=== PATIENT | female | born 1950 | race Caucasian/White ===

== ENCOUNTER 2019-12-30 07:33 | Day surgery (SDC) | payer MEDICARE, BC ==
[~2019-12-30 07:33] MED LIST: Lactated Ringers 1,000 ML IV SCH; Lidocaine 1%/Sod Bicarbonate in NS 8.4% 1 ML Syringe IDERM PRN; Sodium Chloride 0.9% 10 ML Syringe FLUSH PRN
[2019-12-30] MEDS ORDERED: Midazolam 1 MG/ML 2 ML SDV ONE (08:44)
[2019-12-30] MEDS ORDERED: Lidocaine 1% 4 ML ONE (08:44)
[2019-12-30] MEDS ORDERED: Propofol 200 MG/20 ML SDV ONE ×2 (08:44→09:05)
[2019-12-30] MEDS ORDERED: fentaNYL 100 MCG/2 ML SDV ONE (08:44)
[2019-12-30] MEDS ORDERED: Labetalol 100 MG/20 ML MDV ONE (09:15)
--- NOTE | 2019-12-30 09:46 | PCM.PREANE ---
Preanesthetic Assessment - Procedure Proposed Procedure: EGD / Colonoscopy - Anesthesia/Transfusion/Family Hx Anesthesia History: Prior Anesthesia Without Reaction Family History of Anesthesia Reaction: No Transfusion History: No Prior Transfusion(s) - Review of Systems General: No Symptoms Pulmonary: No Symptoms Cardiovascular: No Symptoms Gastrointestinal: No Symptoms Neurological: No Symptoms Other: Reports: Thyroid Problems (hypothyroid), Depression, Anxiety - Physical Assessment NPO Status Date: 12/30/19 NPO Status Time: 05:00 Vital Signs: Last Vital Signs Temp 37.0 C 12/30/19 07:45 Pulse 90 12/30/19 07:45 Resp 20 12/30/19 07:45 BP 161/78 H 12/30/19 07:45 Pulse Ox 96 12/30/19 07:45 Height: 1.63 m Weight: 68.492 kg ASA Class: 2 Mental Status: Alert & Oriented x3 Airway Class: Mallampati = 1 Dentition: Reports: Normal Dentition Thyro-Mental Finger Breadths: 3 Mouth Opening Finger Breadths: 3 ROM/Head Extension: Full Lungs: Clear to Auscultation, Normal Respiratory Effort Cardiovascular: Regular Rate, Regular Rhythm - Allergies Allergies/Adverse Reactions: Allergies Allergy/AdvReac Type Severity Reaction Status Date / Time Sulfa (Sulfonamide Allergy Severe Hives Verified 12/30/19 08:16 Antibiotics) nut - unspecified Allergy Mouth Sores Verified 12/30/19 08:16 - Blood Blood Available: No Product(s) Available: None - Anesthesia Plan Pre-Op Medication Ordered: None - Acknowledgements Anesthesia Type Planned: MAC Pt an Appropriate Candidate for the Planned Anesthesia: Yes Alternatives and Risks of Anesthesia Discussed w Pt/Guardian: Yes Pt/Guardian Understands and Agrees with Anesthesia Plan: Yes PreAnesthesia Questionnaire Gastrointestinal History: Reports: GERD, Hiatal Hernia - HOME MEDS Home Medications: Home Meds Sertraline [Zoloft] 50 mg PO BEDTIME 11/25/13 [History] Cholecalciferol (Vitamin D3) [Vitamin D3] 2,000 unit PO DAILY 12/30/19 [History] L.acidoph,Paracasei, B.lactis [Probiotic] 1 cap PO DAILY 12/30/19 [History] LORazepam [Lorazepam] 0.5 mg PO BEDTIME 12/30/19 [History] - CURRENT (IN HOUSE) MEDS Current Meds: Current Medications Lactated Ringer's (Ringers, Lactated) 1,000 mls @ 125 mls/hr IV ASDIRECTED JACQUELYN Stop: 12/30/19 23:00 Last Admin: 12/30/19 07:50 Dose: 125 mls/hr Documented by: Lidocaine/Sodium Bicarbonate (Buffered Lidocaine 1% In Ns 8.4%) 0.25 ml IDERM ONETIME PRN PRN Reason: Prior to IV Start Stop: 12/30/19 18:00 Last Admin: 12/30/19 07:50 Dose: 0.25 ml Documented by: Sodium Chloride (Saline Flush) 10 ml FLUSH ASDIRECTED PRN PRN Reason: Keep Vein Open Stop: 12/30/19 18:00 Discontinued Medications Fentanyl (Sublimaze) Confirm Administered Dose 100 mcg .ROUTE .STK-MED ONE Stop: 12/30/19 08:45 Lidocaine HCl (Xylocaine-Mpf 1%) Confirm Administered Dose 4 mls @ as directed .ROUTE .STK-MED ONE Stop: 12/30/19 08:45 Labetalol HCl (Normodyne) Confirm Administered Dose 100 mg .ROUTE .STK-MED ONE Stop: 12/30/19 09:16 Midazolam HCl (Versed 1 Mg/Ml) Confirm Administered Dose 2 mg .ROUTE .STK-MED ONE Stop: 12/30/19 08:45 Propofol (Diprivan 20 Ml) Confirm Administered Dose 200 mg .ROUTE .STK-MED ONE Stop: 12/30/19 08:45 Propofol (Diprivan 20 Ml) Confirm Administered Dose 200 mg .ROUTE .STK-MED ONE Stop: 12/30/19 09:06
--- NOTE | 2019-12-30 09:46 | PCM48HPAN ---
Post Anesthesia Note - EVALUATION WITHIN 48HRS OF ANESTHETIC Vital Signs in Normal Range: Yes Patient Participated in Evaluation: Yes Respiratory Function Stable: Yes Airway Patent: Yes Cardiovascular Function Stable: Yes Hydration Status Stable: Yes Pain Control Satisfactory: Yes Nausea and Vomiting Control Satisfactory: Yes Mental Status Recovered: Yes Vital Signs: Last Vital Signs Temp 36.3 C 12/30/19 09:39 Pulse 76 12/30/19 09:39 Resp 16 12/30/19 09:39 BP 112/53 L 12/30/19 09:39 Pulse Ox 92 L 12/30/19 09:39 - COMMENTS/OBSERVATIONS Free Text/Narrative:: no anesthesia complications noted
--- NOTE | 2019-12-30 09:53 | PCM.PRNOTE ---
- Free Text/Narrative Note: Date: 12/30/2019 Procedure: screening upper and lower endoscopy Indications: history of GERD/ hiatal hernia, colon polyps Endoscopist: Joseluis Joy MD Findings: moderate size hiatal hernia. Marked diverticular disease confined to the sigmoid. Good prep. No polyps identified. Detailed Report: The patient was taken to the endoscopy suite and placed in left lateral decubitus position. Timeout was performed, and monitored anesthesia care initiated. A bite-block was placed, and the endoscope was inserted into the mouth. The scope was advanced to the second portion of the duodenum with ease. There was mild friability in the duodenal bulb, and a sample mucosal biopsy was obtained with cold forceps. The gastric antrum appeared grossly normal, a sample of antral tissue was obtained. On retroflexion of the scope, a moderate sized hiatal hernia was appreciated. There was no evidence of Sreekanth's ulcers, or gastric ulcers elsewhere. The scope was withdrawn into the distal esophagus, providing different perspective on this moderate sized hiatal hernia. There was some mild inflammatory change at the distal esophageal mucosa. A sample biopsy of the gastric cardia, and distal esophagus were obtained. Air was evacuated from the stomach, and the scope was completely withdrawn. Next, attention was turned to colonoscopy. Inspection of the anus was unremarkable. Digital rectal exam was unremarkable. The colonoscope was lubricated and inserted in the anus. Scope was advanced all the way to the cecum. The prep was noted to be very good. The appendiceal orifice was visualized. The scope was slowly withdrawn, and mucosal surfaces carefully inspected. No polyps were identified. In the sigmoid colon, extensive diverticular disease was noted. On retroflexion within the rectum, no significant hemorrhoidal disease or other pathology was appreciated. Air was evacuated, and the colonoscope completely withdrawn. Patient tolerated the procedure well.
== END 2019-12-30 10:13 | disposition home or self-care (01) ==
LOC: JD.SDS 07:33
PROVIDERS: ATTEND Surgery
DX: Z12.11 Encounter for screening for malignant neoplasm of colon (principal); K57.30 Diverticulosis of large intestine without perforation or abscess without bleeding; K44.9 Diaphragmatic hernia without obstruction or gangrene; K21.9 Gastro-esophageal reflux disease without esophagitis; F41.9 Anxiety disorder, unspecified; E03.9 Hypothyroidism, unspecified; F32.9 Major depressive disorder, single episode, unspecified; E78.00 Pure hypercholesterolemia, unspecified; Z88.2 Allergy status to sulfonamides; Z79.899 Other long term (current) drug therapy; Z98.890 Other specified postprocedural states; Z86.010 Personal history of colon polyps; Z91.018 Allergy to other foods
CPT/HCPCS: 43239; G0105; J2001; J2250; J2704; J3010; J3490; J7120; 00813

== ENCOUNTER 2021-03-05 18:09 | Day surgery (SDC) | payer MEDICARE, BC ==
[2021-03-05] MEDS ORDERED: HYDROmorphone 1 MG/ML Syringe IVPUSH ONE ×2 (21:17→22:51)
[2021-03-05] MEDS ORDERED: Ondansetron 4 MG/2 ML SDV IVPUSH ONE ×2 (21:17→23:01)
--- NOTE | 2021-03-05 21:22 | EDM.PDOC ---
ED HPI GENERAL MEDICAL PROBLEM - General Chief Complaint: Abdominal Pain Stated Complaint: R SIDE ABDOMINAL PAIN Time Seen by Provider: 03/05/21 20:28 Source of Information: Reports: Patient, Family () History Limitations: Reports: No Limitations - History of Present Illness INITIAL COMMENTS - FREE TEXT/NARRATIVE: Mrs. Mendosa is a very pleasant 71-year-old woman who now presents to the ED stating that she developed right upper quadrant abdominal pain radiating through to her right infrascapular area, along with nausea, numerous episodes of emesis, and some watery diarrhea around 21:00 to 22:00 last night, after eating a fried egg sandwich for dinner around 18:00. She has not had anything to eat since then. She describes the pain as a stabbing and sharp in character. The pain has been constant but progressively getting worse. She feels better if she is upright than supine. No recent fever or urinary symptoms. She states that she took some Aleve, which helped a bit. No prior similar symptoms. Here in the ED, the patient's initial BP is found to be elevated at 174/87, otherwise, she is hemodynamically stable, afebrile, saturating 95% on room air. She appears to be uncomfortable, moving slowly and having difficulty reclining. Prior to last night, the patient denies having a recent fever, chills, sore throat, ear pain, nasal or sinus congestion, cough, dyspnea, chest pain, palpitations, nausea, vomiting, constipation, diarrhea, abdominal pain, urinary symptoms, recent weight gain or weight loss, recent bloody bowel movements or black bowel movements, recent joint aches, headaches, or rashes. The patient's PCP is MARIBEL Holloway. Her Strategy Execution Consultant is Dr. Jeovany Ozuna. The patient has received 2 COVID vaccinations. Right Abdomen Pain Score (Numeric/FACES): 10 - Related Data Allergies Allergy/AdvReac Type Severity Reaction Status Date / Time Sulfa (Sulfonamide Allergy Severe Hives Verified 12/30/19 08:16 Antibiotics) nut - unspecified Allergy Mouth Sores Verified 12/30/19 08:16 Home Meds: Home Meds Sertraline [Zoloft] 50 mg PO BEDTIME 11/25/13 [History] Cholecalciferol (Vitamin D3) [Vitamin D3] 2,000 unit PO DAILY 12/30/19 [History] L.acidoph,Paracasei, B.lactis [Probiotic] 1 cap PO DAILY 12/30/19 [History] LORazepam [Lorazepam] 0.5 mg PO BEDTIME 12/30/19 [History] Past Medical History Gastrointestinal History: Reports: GERD (untreated), Hiatal Hernia Genitourinary History: Reports: Urinary Incontinence (stress incontinence) Musculoskeletal History: Reports: Osteoarthritis Psychiatric History: Reports: Anxiety, Depression Endocrine/Metabolic History: Reports: Hyperthyroidism (s/p partial thyroidectomy) Oncologic (Cancer) History: Reports: Basal Cell Carcinoma - Past Surgical History HEENT Surgical History: Reports: Oral Surgery (dental extractions) GI Surgical History: Reports: Appendectomy Female Surgical History: Reports: Section (x 1) Endocrine Surgical History: Reports: Thyroidectomy (partial) Musculoskeletal Surgical History: Reports: Other (See Below) (Right 2nd finger repair) Social & Family History - Tobacco Use Tobacco Use Status *Q: Never Tobacco User - Caffeine Use Caffeine Use: Reports: Coffee, Soda - Alcohol Use Alcohol Use History: No - Recreational Drug Use Recreational Drug Use: No - Living Situation & Occupation Living situation: Reports: , with Spouse Occupation: Retired ED ROS GENERAL - Review of Systems Review Of Systems: Comprehensive ROS is negative, except as noted in HPI. ED EXAM, GI/ABD - Physical Exam Exam: See Below Exam Limited By: No Limitations General Appearance: Alert, WD/WN, Mild Distress (appears uncomfortable) Eyes: Bilateral: Normal Appearance, EOMI Ears: Normal External Exam, Hearing Grossly Normal Nose: Normal Inspection Throat/Mouth: Normal Inspection, Normal Lips, Normal Voice, No Airway Compromise Head: Atraumatic, Normocephalic Neck: Normal Inspection, Full Range of Motion Respiratory/Chest: No Respiratory Distress, Lungs Clear, Normal Breath Sounds, No Accessory Muscle Use Cardiovascular: Normal Peripheral Pulses, Regular Rate, Rhythm, No Edema, No Gallop, No JVD, No Murmur, No Rub GI/Abdominal Exam: Soft, No Organomegaly, No Distention, No Abnormal Bruit, No Mass, Tender (Exquisite, right upper quadrant only. Sheridan sign present.), Abnormal Bowel Sounds (diminished) Back Exam: Normal Inspection, Full Range of Motion. No: CVA Tenderness (L), CVA Tenderness (R) Extremities: Normal Inspection, Normal Range of Motion, No Pedal Edema, Normal Capillary Refill Neurological: Alert, Oriented, Normal Cognition, No Motor/Sensory Deficits Psychiatric: Normal Affect Skin Exam: Warm, Dry, Intact, Normal Color, No Rash Course - Vital Signs Last Recorded V/S: Last Vital Signs Temp 37.3 C 03/05/21 19:41 Pulse 90 03/05/21 19:41 Resp 20 03/05/21 19:41 BP 174/87 H 03/05/21 19:41 Pulse Ox 95 03/05/21 19:41 - Orders/Labs/Meds Orders: Active Orders 24 hr Category Date Time Status Abdomen Ltd [US] Stat Exams 03/05/21 21:15 Taken Abdomen Pelvis w Cont [CT] Stat Exams 03/05/21 21:17 Taken Sodium Chloride 0.9% [Normal Saline] 1,000 ml Med 03/05/21 21:30 Active IV ASDIRECTED Medication Orders Sodium Chloride (Normal Saline) 1,000 mls @ 150 mls/hr IV ASDIRECTED JACQUELYN Last Admin: 03/05/21 21:24 Dose: 150 mls/hr Documented by: ROD Labs: Laboratory Tests 03/05/21 03/05/21 03/05/21 Range/Units 19:45 19:45 19:45 WBC 13.48 H (3.98-10.04) K/mm3 RBC 4.81 (3.98-5.22) M/mm3 Hgb 14.2 (11.2-15.7) gm/dl Hct 43.4 (34.1-44.9) % MCV 90.2 (79.4-94.8) fl MCH 29.5 (25.6-32.2) pg MCHC 32.7 (32.2-35.5) g/dl RDW Std Deviation 43.6 (36.4-46.3) fL Plt Count 346 (182-369) K/mm3 MPV 9.3 L (9.4-12.3) fl Neutrophils % (Manual) 80 H (40-60) % Band Neutrophils % 0 (0-10) % Lymphocytes % (Manual) 9 L (20-40) % Atypical Lymphs % 1 % Monocytes % (Manual) 9 (2-10) % Eosinophils % (Manual) 0 L (0.7-5.8) % Basophils % (Manual) 1 (0.1-1.2) Platelet Estimate Adequate RBC Morph Comment Normal Sodium 140 (136-145) mEq/L Potassium 3.7 (3.5-5.1) mEq/L Chloride 102 (98-107) mEq/L Carbon Dioxide 24 (21-32) mEq/L Anion Gap 17.7 H (5-15) BUN 15 (7-18) mg/dL Creatinine 0.8 (0.55-1.02) mg/dL Est Cr Clr Drug Dosing 54.89 mL/min Estimated GFR (MDRD) > 60 (>60) mL/min BUN/Creatinine Ratio 18.8 H (14-18) Glucose 145 H (70-99) mg/dL Calcium 9.4 (8.5-10.1) mg/dL Total Bilirubin 0.9 (0.2-1.0) mg/dL AST 36 (15-37) U/L ALT 55 (14-59) U/L Alkaline Phosphatase 105 (46-116) U/L C-Reactive Protein 9.9 H* (<1.0) mg/dL Total Protein 8.1 (6.4-8.2) g/dl Albumin 4.1 (3.4-5.0) g/dl Globulin 4.0 gm/dL Albumin/Globulin Ratio 1.0 (1-2) Lipase 71 L (73-393) U/L Urine Color (Yellow) Urine Appearance (Clear) Urine pH (5.0-8.0) Ur Specific [place] (1.005-1.030) Urine Protein (Negative) Urine Glucose (UA) (Negative) Urine Ketones (Negative) Urine Occult Blood (Negative) Urine Nitrite (Negative) Urine Bilirubin (Negative) Urine Urobilinogen (0.2-1.0) Ur Leukocyte Esterase (Negative) Urine RBC (0-5) /hpf Urine WBC (0-5) /hpf Ur Squamous Epith Cells (0-5) /hpf Urine Bacteria (FEW) /hpf Urine Mucus (FEW) /hpf SARS-CoV-2 RNA (SIMBA) (NEGATIVE) 03/05/21 03/05/21 Range/Units 21:00 22:04 WBC (3.98-10.04) K/mm3 RBC (3.98-5.22) M/mm3 Hgb (11.2-15.7) gm/dl Hct (34.1-44.9) % MCV (79.4-94.8) fl MCH (25.6-32.2) pg MCHC (32.2-35.5) g/dl RDW Std Deviation (36.4-46.3) fL Plt Count (182-369) K/mm3 MPV (9.4-12.3) fl Neutrophils % (Manual) (40-60) % Band Neutrophils % (0-10) % Lymphocytes % (Manual) (20-40) % Atypical Lymphs % % Monocytes % (Manual) (2-10) % Eosinophils % (Manual) (0.7-5.8) % Basophils % (Manual) (0.1-1.2) Platelet Estimate RBC Morph Comment Sodium (136-145) mEq/L Potassium (3.5-5.1) mEq/L Chloride (98-107) mEq/L Carbon Dioxide (21-32) mEq/L Anion Gap (5-15) BUN (7-18) mg/dL Creatinine (0.55-1.02) mg/dL Est Cr Clr Drug Dosing mL/min Estimated GFR (MDRD) (>60) mL/min BUN/Creatinine Ratio (14-18) Glucose (70-99) mg/dL Calcium (8.5-10.1) mg/dL Total Bilirubin (0.2-1.0) mg/dL AST (15-37) U/L ALT (14-59) U/L Alkaline Phosphatase (46-116) U/L C-Reactive Protein (<1.0) mg/dL Total Protein (6.4-8.2) g/dl Albumin (3.4-5.0) g/dl Globulin gm/dL Albumin/Globulin Ratio (1-2) Lipase (73-393) U/L Urine Color Marcell H (Yellow) Urine Appearance Slt cloudy H (Clear) Urine pH 5.5 (5.0-8.0) Ur Specific [place] > or = 1.030 (1.005-1.030) Urine Protein 2+ H (Negative) Urine Glucose (UA) Negative (Negative) Urine Ketones 1+ H (Negative) Urine Occult Blood 2+ H (Negative) Urine Nitrite Negative (Negative) Urine Bilirubin 2+ H (Negative) Urine Urobilinogen 1.0 (0.2-1.0) Ur Leukocyte Esterase Negative (Negative) Urine RBC 0-5 (0-5) /hpf Urine WBC 0-5 (0-5) /hpf Ur Squamous Epith Cells 0-5 (0-5) /hpf Urine Bacteria Many H (FEW) /hpf Urine Mucus Not seen (FEW) /hpf SARS-CoV-2 RNA (SIMBA) Negative (NEGATIVE) Meds: Medications Generic Name Dose Route Start Last Admin Trade Name Freq PRN Reason Stop Dose Admin Sodium Chloride 1,000 mls @ 150 mls/hr 03/05/21 21:30 03/05/21 21:24 Normal Saline IV 150 mls/hr ASDIRECTED JACQUELYN Administration Discontinued Medications Generic Name Dose Route Start Last Admin Trade Name Freq PRN Reason Stop Dose Admin Hydromorphone HCl 1 mg 03/05/21 21:17 03/05/21 21:24 Hydromorphone 1 Mg/Ml Syringe IVPUSH 03/05/21 21:18 1 mg ONETIME ONE Administration Hydromorphone HCl 1 mg 03/05/21 22:51 03/05/21 23:06 Hydromorphone 1 Mg/Ml Syringe IVPUSH 03/05/21 22:52 1 mg ONETIME ONE Administration Hydromorphone HCl 1 mg 03/06/21 03:37 03/06/21 03:45 Hydromorphone 1 Mg/Ml Syringe IVPUSH 03/06/21 03:38 1 mg ONETIME ONE Administration Piperacillin Sod/Tazobactam 100 mls @ 200 mls/hr 03/05/21 22:48 03/05/21 23:06 Sod 4.5 gm/ Sodium Chloride IV 03/05/21 23:17 200 mls/hr ONETIME ONE Administration Ondansetron HCl 4 mg 03/05/21 21:17 03/05/21 21:24 Ondansetron 4 Mg/2 Ml Sdv IVPUSH 03/05/21 21:18 4 mg ONETIME ONE Administration Ondansetron HCl 4 mg 03/05/21 23:01 03/05/21 23:06 Ondansetron 4 Mg/2 Ml Sdv IVPUSH 03/05/21 23:02 4 mg ONETIME ONE Administration - Re-Assessments/Exams Free Text/Narrative Re-Assessment/Exam: 03/05/21 21:18 The patient presentation is concerning for acute cholecystitis. A CBC, CMP, lipase level, CRP, and urinalysis were ordered at triage. I have added an ultrasound of the right upper quadrant and a CT of the abdomen and pelvis with oral and IV contrast. In case the patient needs to go to the OR, be admitted, or transferred, I have also added a swab for the SARS-CoV-2 virus. In the meantime, the patient will be given some IV Dilaudid, IV Zofran, and IV fluid. 03/05/21 22:30 The patient's CBC is remarkable for leukocytosis of 13.48, but with 0% bandemia, and the remainder of her CBC being unremarkable. The patient's CMP is remarkable for hyperglycemia of 145, with the remainder of her CMP being unremarkable. Her lipase level is within normal limits at 71. Her CRP is elevated at 9.9. Her urinalysis is remarkable for marcell/slightly cloudy appearance, 2+ occult blood with 0-5 RBCs, leukocyte esterase negative with 0-5 WBCs, nitrate negative with many bacteria, and 0-5 squamous epithelial cells. Notified that the patient's wanted to take the patient home. I went and talked to both the patient and her and encouraged the patient to stay to complete her ordered workup. She has agreed. She will begin drinking the oral contrast for the CT scan now. 03/05/21 22:41 Ultrasound of the right upper quadrant is read by Mariaelena as "Probable cholelithiasis with chronic cholecystitis." 03/05/21 22:[address] Joy at 22:43. He requested that we start the patient on Zosyn. Because we have no beds available at this facility, the patient will remain here in the ED overnight. Dr. Joy will evaluate the patient in the morning, with the intention of taking her to the operating room. 03/05/21 22:52 Test results and my conversation with Dr. Joy discussed with the patient and her . She is agreeable with the plan. 03/06/21 00:13 The patient's a swab for the SARS-CoV-2 virus is negative. 03/06/21 01:31 CT of the abdomen and pelvis with IV contrast is read by Mariaelena as: 1. Changes consistent with both acute and chronic cholecystitis 03/06/21 07:07 Dr. Joy has come to the ED, reviewed the CT scan, and evaluated the patient. I am told that he intends to take the patient to the OR around 09:30. Departure - Departure Time of Disposition: 07:08 Disposition: DC/Tfer to [facility] Condition: Good Clinical Impression: Acute cholecystitis - Discharge Information *PRESCRIPTION DRUG MONITORING PROGRAM REVIEWED*: Not Applicable *COPY OF PRESCRIPTION DRUG MONITORING REPORT IN PATIENT [place]: Not Applicable Sepsis Event Note (ED) - Focused Exam Vital Signs: Vital Signs Temp Pulse Resp BP Pulse Ox 03/05/21 19:41 37.3 C 90 20 174/87 H 95 - My Orders Last 24 Hours: My Active Orders 03/05/21 21:15 Abdomen Ltd [US] Stat 03/05/21 21:17 Abdomen Pelvis w Cont [CT] Stat 03/05/21 21:30 Sodium Chloride 0.9% [Normal Saline] 1,000 ml IV ASDIRECTED - Assessment/Plan Last 24 Hours: My Active Orders 03/05/21 21:15 Abdomen Ltd [US] Stat 03/05/21 21:17 Abdomen Pelvis w Cont [CT] Stat 03/05/21 21:30 Sodium Chloride 0.9% [Normal Saline] 1,000 ml IV ASDIRECTED
[2021-03-05] MEDS ORDERED: Sodium Chloride 0.9% 1,000 ML IV SCH (21:30)
[2021-03-05] MEDS ORDERED: Piperacillin/Tazobactam 4.5 GM in Sodium Chloride 0.9% 100 ML IV ONE (22:48)
[2021-03-06] MEDS ORDERED: HYDROmorphone 1 MG/ML Syringe IVPUSH ONE (03:37)
[2021-03-06] MEDS ORDERED: Piperacillin/Tazobactam 4.5 GM in Sodium Chloride 0.9% 100 ML IV ONE ×2 (07:09→10:45)
--- NOTE | 2021-03-06 07:21 | PCM.HP.2 ---
H&P History of Present Illness - General Date of Service: 03/06/21 Admit Problem/Dx: acute cholecystitis Source of Information: Patient History Limitations: Reports: No Limitations - History of Present Illness Initial Comments - Free Text/Narative: Mrs. Mendosa is a 71 yo woman presenting with pain in the right upper quadrant which started in the evening two days ago. The pain has been severe and unremitting since onset. She has never had pain like this before. She has been vomiting. She denies fever. In the ER, she has focal tenderness in the right upper quadrant and feels warm to touch. She is tachycardic to 100-110 with normal BP on most recent check. WBC is elevated at 13,000 [address] RU[address] US and CT show evidence of cholecystitis with stones and sludge. Labs are not suggestive of choledocholithiasis. The only medications she takes are over the counter vitamins and supplements, lorazepam and sertraline. Prior surgery includes appendectomy, oophorectomy and partial thyroidectomy- she denies any history of cancer however. Right Abdomen Pain Score (Numeric/FACES): 10 - Related Data Allergies/Adverse Reactions: Allergies Allergy/AdvReac Type Severity Reaction Status Date / Time Sulfa (Sulfonamide Allergy Severe Hives Verified 12/30/19 08:16 Antibiotics) nut - unspecified Allergy Mouth Sores Verified 12/30/19 08:16 Home Medications: Home Meds Sertraline [Zoloft] 50 mg PO BEDTIME 11/25/13 [History] Cholecalciferol (Vitamin D3) [Vitamin D3] 2,000 unit PO DAILY 12/30/19 [History] L.acidoph,Paracasei, B.lactis [Probiotic] 1 cap PO DAILY 12/30/19 [History] LORazepam [Lorazepam] 0.5 mg PO BEDTIME 12/30/19 [History] Past Medical History Gastrointestinal History: Reports: GERD (untreated), Hiatal Hernia Genitourinary History: Reports: Urinary Incontinence (stress incontinence) Musculoskeletal History: Reports: Osteoarthritis Psychiatric History: Reports: Anxiety, Depression Endocrine/Metabolic History: Reports: Hyperthyroidism (s/p partial thyroidectomy) Other Endocrine/Metabolic History: partial thyroid surgery Oncologic (Cancer) History: Reports: Basal Cell Carcinoma - Infectious Disease History Infectious Disease History: Reports: None - Past Surgical History HEENT Surgical History: Reports: Oral Surgery (dental extractions) GI Surgical History: Reports: Appendectomy Female Surgical History: Reports: Section (x 1) Endocrine Surgical History: Reports: Thyroidectomy (partial) Musculoskeletal Surgical History: Reports: Other (See Below) (Right 2nd finger repair) Social & Family History - Tobacco Use Tobacco Use Status *Q: Never Tobacco User - Caffeine Use Caffeine Use: Reports: Coffee, Soda - Recreational Drug Use Recreational Drug Use: No - Living Situation & Occupation Living situation: Reports: , with Spouse Occupation: Retired H&P Review of Systems - Review of Systems: Review Of Systems: See Below General: Reports: Malaise HEENT: Reports: No Symptoms Pulmonary: Reports: No Symptoms Cardiovascular: Reports: No Symptoms Gastrointestinal: Reports: Abdominal Pain, Anorexia, Nausea, Vomiting Genitourinary: Reports: No Symptoms Musculoskeletal: Reports: No Symptoms Skin: Reports: No Symptoms Psychiatric: Reports: No Symptoms Neurological: Reports: No Symptoms Hematologic/Lymphatic: Reports: No Symptoms Immunologic: Reports: No Symptoms Exam - Exam Exam: See Below - Vital Signs Vital Signs: Last Vital Signs Temp 37.3 C 03/05/21 19:41 Pulse 90 03/05/21 19:41 Resp 20 03/05/21 19:41 BP 174/87 H 03/05/21 19:41 Pulse Ox 95 03/05/21 19:41 Weight: 70.108 kg - Exam Quality Assessment: Supplemental Oxygen General: Alert, Oriented, Cooperative, Mild Distress HEENT: Conjunctiva Clear, Pupils Equal Neck: Supple Lungs: Clear to Auscultation, Normal Respiratory Effort Cardiovascular: Tachycardia, Other (no murmur, sinus rhythm, palpable radial pulses, BP ~130/70 at time of exam) GI/Abdominal Exam: Soft, No Mass, Tender Extremities: Normal Inspection Skin: Warm, Dry Neuro Extensive - Mental Status: Alert Psychiatric: Normal Mood - Patient Data Lab Results Last 24 hrs: Laboratory Results - last 24 hr 03/05/21 03/05/21 03/05/21 Range/Units 19:45 19:45 19:45 WBC 13.48 H (3.98-10.04) K/mm3 RBC 4.81 (3.98-5.22) M/mm3 Hgb 14.2 (11.2-15.7) gm/dl Hct 43.4 (34.1-44.9) % MCV 90.2 (79.4-94.8) fl MCH 29.5 (25.6-32.2) pg MCHC 32.7 (32.2-35.5) g/dl RDW Std Deviation 43.6 (36.4-46.3) fL Plt Count 346 (182-369) K/mm3 MPV 9.3 L (9.4-12.3) fl Neutrophils % (Manual) 80 H (40-60) % Band Neutrophils % 0 (0-10) % Lymphocytes % (Manual) 9 L (20-40) % Atypical Lymphs % 1 % Monocytes % (Manual) 9 (2-10) % Eosinophils % (Manual) 0 L (0.7-5.8) % Basophils % (Manual) 1 (0.1-1.2) Platelet Estimate Adequate RBC Morph Comment Normal Sodium 140 (136-145) mEq/L Potassium 3.7 (3.5-5.1) mEq/L Chloride 102 (98-107) mEq/L Carbon Dioxide 24 (21-32) mEq/L Anion Gap 17.7 H (5-15) BUN 15 (7-18) mg/dL Creatinine 0.8 (0.55-1.02) mg/dL Est Cr Clr Drug Dosing 54.89 mL/min Estimated GFR (MDRD) > 60 (>60) mL/min BUN/Creatinine Ratio 18.8 H (14-18) Glucose 145 H (70-99) mg/dL Calcium 9.4 (8.5-10.1) mg/dL Total Bilirubin 0.9 (0.2-1.0) mg/dL AST 36 (15-37) U/L ALT 55 (14-59) U/L Alkaline Phosphatase 105 (46-116) U/L C-Reactive Protein 9.9 H* (<1.0) mg/dL Total Protein 8.1 (6.4-8.2) g/dl Albumin 4.1 (3.4-5.0) g/dl Globulin 4.0 gm/dL Albumin/Globulin Ratio 1.0 (1-2) Lipase 71 L (73-393) U/L Urine Color (Yellow) Urine Appearance (Clear) Urine pH (5.0-8.0) Ur Specific [place] (1.005-1.030) Urine Protein (Negative) Urine Glucose (UA) (Negative) Urine Ketones (Negative) Urine Occult Blood (Negative) Urine Nitrite (Negative) Urine Bilirubin (Negative) Urine Urobilinogen (0.2-1.0) Ur Leukocyte Esterase (Negative) Urine RBC (0-5) /hpf Urine WBC (0-5) /hpf Ur Squamous Epith Cells (0-5) /hpf Urine Bacteria (FEW) /hpf Urine Mucus (FEW) /hpf SARS-CoV-2 RNA (SIMBA) (NEGATIVE) 03/05/21 03/05/21 Range/Units 21:00 22:04 WBC (3.98-10.04) K/mm3 RBC (3.98-5.22) M/mm3 Hgb (11.2-15.7) gm/dl Hct (34.1-44.9) % MCV (79.4-94.8) fl MCH (25.6-32.2) pg MCHC (32.2-35.5) g/dl RDW Std Deviation (36.4-46.3) fL Plt Count (182-369) K/mm3 MPV (9.4-12.3) fl Neutrophils % (Manual) (40-60) % Band Neutrophils % (0-10) % Lymphocytes % (Manual) (20-40) % Atypical Lymphs % % Monocytes % (Manual) (2-10) % Eosinophils % (Manual) (0.7-5.8) % Basophils % (Manual) (0.1-1.2) Platelet Estimate RBC Morph Comment Sodium (136-145) mEq/L Potassium (3.5-5.1) mEq/L Chloride (98-107) mEq/L Carbon Dioxide (21-32) mEq/L Anion Gap (5-15) BUN (7-18) mg/dL Creatinine (0.55-1.02) mg/dL Est Cr Clr Drug Dosing mL/min Estimated GFR (MDRD) (>60) mL/min BUN/Creatinine Ratio (14-18) Glucose (70-99) mg/dL Calcium (8.5-10.1) mg/dL Total Bilirubin (0.2-1.0) mg/dL AST (15-37) U/L ALT (14-59) U/L Alkaline Phosphatase (46-116) U/L C-Reactive Protein (<1.0) mg/dL Total Protein (6.4-8.2) g/dl Albumin (3.4-5.0) g/dl Globulin gm/dL Albumin/Globulin Ratio (1-2) Lipase (73-393) U/L Urine Color Mary Carmen H (Yellow) Urine Appearance Slt cloudy H (Clear) Urine pH 5.5 (5.0-8.0) Ur Specific [place] > or = 1.030 (1.005-1.030) Urine Protein 2+ H (Negative) Urine Glucose (UA) Negative (Negative) Urine Ketones 1+ H (Negative) Urine Occult Blood 2+ H (Negative) Urine Nitrite Negative (Negative) Urine Bilirubin 2+ H (Negative) Urine Urobilinogen 1.0 (0.2-1.0) Ur Leukocyte Esterase Negative (Negative) Urine RBC 0-5 (0-5) /hpf Urine WBC 0-5 (0-5) /hpf Ur Squamous Epith Cells 0-5 (0-5) /hpf Urine Bacteria Many H (FEW) /hpf Urine Mucus Not seen (FEW) /hpf SARS-CoV-2 RNA (SIMBA) Negative (NEGATIVE) Result Diagrams: 03/05/21 19:45 03/05/21 19:45 Sepsis Event Note - Focused Exam Vital Signs: Vital Signs Temp Pulse Resp BP Pulse Ox 03/05/21 19:41 37.3 C 90 20 174/87 H 95 Problem List Initiated/Reviewed/Updated: Yes Orders Last 24hrs: Active Orders 24 hr Category Date Time Status NPO Now [Nothing per Oral Now Diet] [DIET] Diet 03/06/21 Lunch Active Abdomen Ltd [US] Stat Exams 03/05/21 21:15 Taken Abdomen Pelvis w Cont [CT] Stat Exams 03/05/21 21:17 Taken Piperacillin/Tazobactam [Piperacil-Tazobact] 4.5 gm Med 03/06/21 07:09 Ordered Sodium Chloride 0.9% [Normal Saline] 100 ml IV ONETIME Sodium Chloride 0.9% [Normal Saline] 1,000 ml Med 03/05/21 21:30 Active IV ASDIRECTED Schedule Procedure [COMM] Routine Oth 03/06/21 07:08 Ordered Medication Orders Sodium Chloride (Normal Saline) 1,000 mls @ 150 mls/hr IV ASDIRECTED [facility] [place] Last Admin: 03/05/21 21:24 Dose: 150 mls/hr Documented by: ROD Piperacillin Sod/Tazobactam (Sod 4.5 gm/ Sodium Chloride) 100 mls @ 200 mls/hr IV ONETIME ONE Stop: 03/06/21 07:38 Assessment/Plan Comment:: Acute cholecystitis. Plan for laparoscopic cholecystectomy. Reviewed risks including bleeding, infection, bile duct injury, and possible need for additional procedures. All questions were answered to the patient's satisfaction prior to proceeding. - Mortality Measure Prognosis:: Good
--- NOTE | 2021-03-06 07:27 | US ---
Limited abdominal ultrasound: Multiple real-time images were obtained of the upper right abdomen. Comparison: No prior abdominal ultrasound is available. Pancreas is not completely seen. Visualized portions of the pancreas show no discrete abnormality. Liver is not optimally visualized but shows no discrete abnormality. Gallbladder is distended and shows diffuse increased echoes presumably caused by increased sludge within the gallbladder. No shadowing gallstones are seen. Common bile duct shows slight areas of thickening. No biliary duct dilatation is seen. Right kidney shows no hydronephrosis or mass. Right kidney measures 9.4 cm in length. Proximal aorta shows no aneurysm. Inferior vena cava is patent. Main portal vein shows normal hepatopedal flow. Impression: 1. Gallbladder is diffusely filled with sludge. No shadowing gallstones are seen. Several areas of mild gallbladder wall thickening are noted with no biliary duct dilatation. 2. No additional abnormality is definitely appreciated on right upper quadrant abdominal ultrasound study. Diagnostic code #3 I agree with preliminary report from [facility], finalized on 03/05/21, 11:39 PM CDT, code 1
--- NOTE | 2021-03-06 07:50 | CT ---
CT abdomen and pelvis Technique: Multiple axial sections were obtained from above the dome of the diaphragm inferiorly through the pubic symphysis. Intravenous contrast was utilized. No oral contrast has been given. Comparison: Prior abdominal ultrasound performed earlier on the same day (9:26 PM). Findings: Gallbladder is enlarged. There is haziness seen around the gallbladder presumably due to inflammatory change. Visualized lung bases show mostly what appears to be fibrosis and atelectasis. Difficult to exclude pneumonia if patient has additional infectious symptoms. Liver contains no focal parenchymal abnormality. There is minimal fluid being seen around the liver compatible with minimal ascites. Spleen size is normal. Adrenal glands show no nodule. Pancreas shows no abnormality. Kidneys show symmetric contrast enhancement. Small cysts are seen within both kidneys. Abdominal aorta shows no aneurysm. Small to moderate sized hiatal hernia is seen. No retroperitoneal adenopathy or mesenteric abnormalities are seen. No pelvic mass or adenopathy is identified. Diverticuli are seen within the sigmoid colon with no inflammatory change or diverticulitis. Bone window settings were reviewed which show no acute osseous abnormality. Impression: 1. Gallbladder shows diffuse increased density presumably due to diffuse inflammatory change. Please correlate if patient has symptoms of cholecystitis. 2. Small amount of fluid is seen around the gallbladder. 3. Increased density within both lung bases as described above. 4. Other chronic findings as noted above. Diagnostic code #3 I agree with preliminary report from [facility], finalized on 03/06/21, 2:02 AM CDT, code 1
--- NOTE | 2021-03-06 08:13 | PCM.PREANE ---
Preanesthetic Assessment - Procedure Proposed Procedure: Laparoscopic cholecystectomy - Anesthesia/Transfusion/Family Hx Anesthesia History: Prior Anesthesia Reaction (nausea) Family History of Anesthesia Reaction: No Transfusion History: Prior Transfusion Without Reaction - Review of Systems General: Fatigue, Malaise Pulmonary: No Symptoms Cardiovascular: No Symptoms Gastrointestinal: Abdominal Pain, Nausea Neurological: No Symptoms Other: Reports: Thyroid Problems (hyperthyroid) - Physical Assessment NPO Status Date: 03/05/21 NPO Status Time: 00:00 Vital Signs: Last Vital Signs Temp 37.3 C 03/05/21 19:41 Pulse 90 03/05/21 19:41 Resp 20 03/05/21 19:41 BP 174/87 H 03/05/21 19:41 Pulse Ox 95 03/05/21 19:41 Height: 1.63 m Weight: 70.108 kg ASA Class: 3 Mental Status: Alert & Oriented x3 Airway Class: Mallampati = 1 Dentition: Reports: Missing Tooth/Teeth Thyro-Mental Finger Breadths: 3 Mouth Opening Finger Breadths: 2 ROM/Head Extension: Limited/Partial Lungs: Clear to Auscultation, Normal Respiratory Effort Cardiovascular: Regular Rate, Regular Rhythm - Lab Values: Laboratory Last Values WBC 13.48 K/mm3 (3.98-10.04) H 03/05/21 19:45 RBC 4.81 M/mm3 (3.98-5.22) 03/05/21 19:45 Hgb 14.2 gm/dl (11.2-15.7) 03/05/21 19:45 Hct 43.4 % (34.1-44.9) 03/05/21 19:45 MCV 90.2 fl (79.4-94.8) 03/05/21 19:45 MCH 29.5 pg (25.6-32.2) 03/05/21 19:45 MCHC 32.7 g/dl (32.2-35.5) 03/05/21 19:45 RDW Std Deviation 43.6 fL (36.4-46.3) 03/05/21 19:45 Plt Count 346 K/mm3 (182-369) 03/05/21 19:45 MPV 9.3 fl (9.4-12.3) L 03/05/21 19:45 Neutrophils % (Manual) 80 % (40-60) H 03/05/21 19:45 Band Neutrophils % 0 % (0-10) 03/05/21 19:45 Lymphocytes % (Manual) 9 % (20-40) L 03/05/21 19:45 Atypical Lymphs % 1 % 03/05/21 19:45 Monocytes % (Manual) 9 % (2-10) 03/05/21 19:45 Eosinophils % (Manual) 0 % (0.7-5.8) L 03/05/21 19:45 Basophils % (Manual) 1 (0.1-1.2) 03/05/21 19:45 Platelet Estimate Adequate 03/05/21 19:45 RBC Morph Comment Normal 03/05/21 19:45 Sodium 140 mEq/L (136-145) 03/05/21 19:45 Potassium 3.7 mEq/L (3.5-5.1) 03/05/21 19:45 Chloride 102 mEq/L (98-107) 03/05/21 19:45 Carbon Dioxide 24 mEq/L (21-32) 03/05/21 19:45 Anion Gap 17.7 (5-15) H 03/05/21 19:45 BUN 15 mg/dL (7-18) 03/05/21 19:45 Creatinine 0.8 mg/dL (0.55-1.02) 03/05/21 19:45 Est Cr Clr Drug Dosing 54.89 mL/min 03/05/21 19:45 Estimated GFR (MDRD) > 60 mL/min (>60) 03/05/21 19:45 BUN/Creatinine Ratio 18.8 (14-18) H 03/05/21 19:45 Glucose 145 mg/dL (70-99) H 03/05/21 19:45 Calcium 9.4 mg/dL (8.5-10.1) 03/05/21 19:45 Total Bilirubin 0.9 mg/dL (0.2-1.0) 03/05/21 19:45 AST 36 U/L (15-37) 03/05/21 19:45 ALT 55 U/L (14-59) 03/05/21 19:45 Alkaline Phosphatase 105 U/L (46-116) 03/05/21 19:45 C-Reactive Protein 9.9 mg/dL (<1.0) H* 03/05/21 19:45 Total Protein 8.1 g/dl (6.4-8.2) 03/05/21 19:45 Albumin 4.1 g/dl (3.4-5.0) 03/05/21 19:45 Globulin 4.0 gm/dL 03/05/21 19:45 Albumin/Globulin Ratio 1.0 (1-2) 03/05/21 19:45 Lipase 71 U/L (73-393) L 03/05/21 19:45 Urine Color Mary Carmen (Yellow) H 03/05/21 21:00 Urine Appearance Slt cloudy (Clear) H 03/05/21 21:00 Urine pH 5.5 (5.0-8.0) 03/05/21 21:00 Ur Specific [place] > or = 1.030 (1.005-1.030) 03/05/21 21:00 Urine Protein 2+ (Negative) H 03/05/21 21:00 Urine Glucose (UA) Negative (Negative) 03/05/21 21:00 Urine Ketones 1+ (Negative) H 03/05/21 21:00 Urine Occult Blood 2+ (Negative) H 03/05/21 21:00 Urine Nitrite Negative (Negative) 03/05/21 21:00 Urine Bilirubin 2+ (Negative) H 03/05/21 21:00 Urine Urobilinogen 1.0 (0.2-1.0) 03/05/21 21:00 Ur Leukocyte Esterase Negative (Negative) 03/05/21 21:00 Urine RBC 0-5 /hpf (0-5) 03/05/21 21:00 Urine WBC 0-5 /hpf (0-5) 03/05/21 21:00 Ur Squamous Epith Cells 0-5 /hpf (0-5) 03/05/21 21:00 Urine Bacteria Many /hpf (FEW) H 03/05/21 21:00 Urine Mucus Not seen /hpf (FEW) 03/05/21 21:00 SARS-CoV-2 RNA (SIMBA) Negative (NEGATIVE) 03/05/21 22:04 - Allergies Allergies/Adverse Reactions: Allergies Allergy/AdvReac Type Severity Reaction Status Date / Time Sulfa (Sulfonamide Allergy Severe Hives Verified 12/30/19 08:16 Antibiotics) nut - unspecified Allergy Mouth Sores Verified 12/30/19 08:16 - Blood Blood Available: No Product(s) Available: None - Anesthesia Plan Pre-Op Medication Ordered: None - Acknowledgements Anesthesia Type Planned: General Anesthesia Pt an Appropriate Candidate for the Planned Anesthesia: Yes Alternatives and Risks of Anesthesia Discussed w Pt/Guardian: Yes Pt/Guardian Understands and Agrees with Anesthesia Plan: Yes PreAnesthesia Questionnaire Gastrointestinal History: Reports: GERD (untreated), Hiatal Hernia Genitourinary History: Reports: Urinary Incontinence (stress incontinence) Musculoskeletal History: Reports: Osteoarthritis Psychiatric History: Reports: Anxiety, Depression Endocrine/Metabolic History: Reports: Hyperthyroidism (s/p partial thyroidectom y) Other Endocrine/Metabolic History: partial thyroid surgery Oncologic (Cancer) History: Reports: Basal Cell Carcinoma - Infectious Disease History Infectious Disease History: Reports: None - Past Surgical History HEENT Surgical History: Reports: Oral Surgery (dental extractions) GI Surgical History: Reports: Appendectomy Female Surgical History: Reports: Section (x 1) Endocrine Surgical History: Reports: Thyroidectomy (partial) Musculoskeletal Surgical History: Reports: Other (See Below) (Right 2nd finger repair) - SUBSTANCE USE Tobacco Use Status *Q: Never Tobacco User Tobacco Use Within Last Twelve Months: No Second Hand Smoke Exposure: No Days Per Week of Alcohol Use: 0 Number of Drinks Per Day: 0 Total Drinks Per Week: 0 Recreational Drug Use History: No - HOME MEDS Home Medications: Home Meds Sertraline [Zoloft] 50 mg PO BEDTIME 11/25/13 [History] Cholecalciferol (Vitamin D3) [Vitamin D3] 2,000 unit PO DAILY 12/30/19 [History] L.acidoph,Paracasei, B.lactis [Probiotic] 1 cap PO DAILY 12/30/19 [History] LORazepam [Lorazepam] 0.5 mg PO BEDTIME 12/30/19 [History] - CURRENT (IN HOUSE) MEDS Current Meds: Current Medications Sodium Chloride (Normal Saline) 1,000 mls @ 150 mls/hr IV ASDIRECTED JACQUELYN Last Admin: 03/05/21 21:24 Dose: 150 mls/hr Documented by: Discontinued Medications Hydromorphone HCl (Hydromorphone 1 Mg/Ml Syringe) 1 mg IVPUSH ONETIME ONE Stop: 03/05/21 21:18 Last Admin: 03/05/21 21:24 Dose: 1 mg Documented by: Hydromorphone HCl (Hydromorphone 1 Mg/Ml Syringe) 1 mg IVPUSH ONETIME ONE Stop: 03/05/21 22:52 Last Admin: 03/05/21 23:06 Dose: 1 mg Documented by: Hydromorphone HCl (Hydromorphone 1 Mg/Ml Syringe) 1 mg IVPUSH ONETIME ONE Stop: 03/06/21 03:38 Last Admin: 03/06/21 03:45 Dose: 1 mg Documented by: Piperacillin Sod/Tazobactam (Sod 4.5 gm/ Sodium Chloride) 100 mls @ 200 mls/hr IV ONETIME ONE Stop: 03/05/21 23:17 Last Admin: 03/05/21 23:06 Dose: 200 mls/hr Documented by: Piperacillin Sod/Tazobactam (Sod 4.5 gm/ Sodium Chloride) 100 mls @ 200 mls/hr IV ONETIME ONE Stop: 03/06/21 07:38 Ondansetron HCl (Ondansetron 4 Mg/2 Ml Sdv) 4 mg IVPUSH ONETIME ONE Stop: 03/05/21 21:18 Last Admin: 03/05/21 21:24 Dose: 4 mg Documented by: Ondansetron HCl (Ondansetron 4 Mg/2 Ml Sdv) 4 mg IVPUSH ONETIME ONE Stop: 03/05/21 23:02 Last Admin: 03/05/21 23:06 Dose: 4 mg Documented by:
[2021-03-06] MEDS ORDERED: Lactated Ringers 1,000 ML IV SCH (08:30)
[2021-03-06] MEDS ORDERED: Propofol 200 MG/20 ML SDV ONE (09:36)
[2021-03-06] MEDS ORDERED: Rocuronium 50 MG/5 ML Vial ONE (09:36)
[2021-03-06] MEDS ORDERED: Ondansetron 4 MG/2 ML SDV ONE (09:36)
[2021-03-06] MEDS ORDERED: fentaNYL 100 MCG/2 ML SDV ONE ×3 (09:36→11:04)
[2021-03-06] MEDS ORDERED: Lidocaine 1% 4 ML ONE (09:36)
[2021-03-06] MEDS ORDERED: Bupivacaine 0.5%/EPINEPHrine 1:200,000 50 ML MDV ONE (10:04)
[2021-03-06] MEDS ORDERED: Labetalol 100 MG/20 ML MDV ONE (11:00)
[2021-03-06] MEDS ORDERED: HYDROmorphone 1 MG/ML Syringe ONE (11:02)
[2021-03-06] MEDS ORDERED: Lactated Ringers 1,000 ML ONE (11:06)
--- NOTE | 2021-03-06 12:13 | PCM.POSTAN ---
POST ANESTHESIA ASSESSMENT - MENTAL STATUS Mental Status: Alert, Oriented - VITAL SIGNS Vital Signs: Last Vital Signs Temp 36.8 C 03/06/21 07:30 Pulse 95 03/06/21 07:30 Resp 16 03/06/21 07:30 BP 123/59 L 03/06/21 07:30 Pulse Ox 92 L 03/06/21 07:30 - RESPIRATORY Respiratory Status: Respiratory Rate WNL, Airway Patent, O2 Saturation Stable, Supplemental Oxygen - CARDIOVASCULAR CV Status: Pulse Rate WNL, Blood Pressure Stable - GASTROINTESTINAL GI Status: No Symptoms - PAIN Pain Score: 0 - POST OP HYDRATION Hydration Status: Adequate & Stable - OBSERVATIONS Free Text/Narrative:: No anesthesia complications noted
--- NOTE | 2021-03-06 12:22 | PCM.PRNOTE ---
- Free Text/Narrative Note: Date: 03/06/2021 Operation: laparoscopic cholecystectomy Indication: acute calculous cholecystitis Surgeon: Joseluis Joy MD EBL: 100 cc Antibiotic: 4.5 g piperacillin/tazobactam IV pre-incision DVT Ppx: SCD Specimen: gallbladder Findings: gangrenous cholecystitis with rupture at the infundibulum due to retraction. Critical view of safety was established. Detailed Report: The patient was taken to the operating room and placed in supine position. Timeout was performed and general endotracheal anesthesia was initiated. The abdomen was prepped and draped in usual sterile fashion. A Veress needle was placed at the left upper quadrant in order to establish pneumoperitoneum. Once pressure reached 15 mmHg, a needle and syringe were used to aspirate air just inferior to the umbilicus. A 5 mm bladed trocar was inserted at this site and the 5 mm 30 degree laparoscope was inserted into the abdomen. The patient was positioned in reverse Trendelenburg and rotated towards the surgeon standing on the patient's left side. Additional 5 mm ports were placed at the right lateral abdomen and right upper quadrant. A bladed 12 mm trocar was placed at the subxiphoid site. The gallbladder appeared tense and severely inflamed with gross evidence of gangrene. A laparoscopic hollow needle was used to decompress the gallbladder, and thick dark bile was aspirated. The fundus of the gallbladder was grasped and retracted cephalad, and a rind of omentum was peeled off of the gallbladder. Using careful blunt dissection, the thickened visceral peritoneal rind of the gallbladder was peeled away and the infundibulum was identified. This was grasped and retracted laterally. Careful dissection en sued in order to delineate the cystic duct and artery. Eventually, a critical view of safety was obtained. Large purple hemolock clips were placed on the cystic duct, with 2 on the stay side and one on the specimen side. After clips were placed, the gallbladder ruptured above the level of the infundibulum due to retraction. Bile and small stones were suctioned up, and the cystic duct was transected. The cystic artery was then clipped and divided. The gallbladder was removed from the liver using hook monopolar energy. Once freed, the gallbladder was placed in an Endo Catch bag and removed through the subxiphoid site. Bleeding from the liver edge was minor and controlled with directed monopolar energy. The dissection field and perihepatic fluid were suctioned, and copious irrigation was used to wash the dissection field and surrounding areas and suctioned dry. The 12 mm port was then removed, and fascia was closed at this site with 2 interrupted transfascial 0 Vicryl suture using a laparoscopic suture passer. Right lateral ports were removed under laparoscopic visualization and hemostasis was satisfactory. Pneumoperitoneum was released and the remaining port was removed. All skin incisions were closed with running subcuticular Vicryl suture and dressed with Dermabond. A total of 40 cc 0.5% Marcaine with epinephrine was used for local anesthetic throughout the case. The patient tolerated the procedure well.
--- NOTE | 2021-03-06 13:20 | PCM48HPAN ---
Post Anesthesia Note - EVALUATION WITHIN 48HRS OF ANESTHETIC Vital Signs in Normal Range: Yes Patient Participated in Evaluation: Yes Respiratory Function Stable: Yes Airway Patent: Yes Cardiovascular Function Stable: Yes Hydration Status Stable: Yes Pain Control Satisfactory: Yes Nausea and Vomiting Control Satisfactory: Yes Mental Status Recovered: Yes Vital Signs: Last Vital Signs Temp 36.9 C 03/06/21 13:00 Pulse 102 H 03/06/21 13:00 Resp 12 03/06/21 13:00 BP 119/71 03/06/21 13:00 Pulse Ox 92 L 03/06/21 13:00 - COMMENTS/OBSERVATIONS Free Text/Narrative:: no anesthesia complications noted
[2021-03-06] MEDS: Albuterol 0.083% 2.5 MG/3 ML Neb Soln ONE ×2 (14:13→14:18)
[2021-03-06] MEDS ORDERED: Albuterol 0.083% 2.5 MG/3 ML Neb Soln NEB ONE (14:15)
[2021-03-06] MEDS ORDERED: Albuterol 0.042% 1.25 MG/3 ML Neb Soln NEB ONE (14:15)
== END 2021-03-06 19:20 | disposition home or self-care (01) ==
LOC: JD.ED 18:09 → JD.SDS 03-06 05:24 → JD.OB 03-06 16:23 → JD.SDS 03-06 19:20
PROVIDERS: ATTEND Surgery
DX: K80.00 Calculus of gallbladder with acute cholecystitis without obstruction (principal); K82.A1 Gangrene of gallbladder in cholecystitis; K21.9 Gastro-esophageal reflux disease without esophagitis; Z98.890 Other specified postprocedural states; Z88.2 Allergy status to sulfonamides; Z91.018 Allergy to other foods; Z79.899 Other long term (current) drug therapy; Z01.812 Encounter for preprocedural laboratory examination; Z20.822 Contact with and (suspected) exposure to COVID-19
CPT/HCPCS: 00790; 36415; 74177; 74177-26; 76705; 76705-26; 80053; 81001; 83690; 85007; 85027; 86140; 88304; 96365; 96375; 96376; 99100; 99285-25; J1170; J2405; J2543; J2704; J3010; J3490; J7030; J7120; U0002

== ENCOUNTER 2024-10-03 19:39 | Emergency (ER) | payer MEDICARE, BC ==
[2024-10-03] MEDS: Lactated Ringers 1,000 ML IV SCH (20:35)
[2024-10-03] MEDS: Ketorolac 30 MG/ML SDV IVPUSH ONE (20:36)
[2024-10-03] MEDS: SUMAtriptan 6 MG/0.5 ML SDV SUBCUT ONE (20:38)
[2024-10-03] MEDS: Acetaminophen 325 MG Tab PO ONE (22:27)
== END 2024-10-03 22:34 | disposition home or self-care (01) ==
LOC: JD.ED 19:39
DX: G43.909 Migraine, unspecified, not intractable, without status migrainosus (principal); Z86.16 Personal history of COVID-19; Z90.49 Acquired absence of other specified parts of digestive tract; Z79.899 Other long term (current) drug therapy; Z88.2 Allergy status to sulfonamides; Z91.018 Allergy to other foods
CPT/HCPCS: 96361; 96372; 96374; 99283; A9270; J1885; J3030; J7120